=== PATIENT | female | born 1945 | race Caucasian/White ===

== ENCOUNTER → 2018-11-11 | Outpatient (CLI) | payer BC ==
[2015-08-12 05:15] VITALS: BP 151/74
[~2018-11-11] MED LIST: ALBU2.5V8 IH; CIPR250T30 PO; DOCU100C28 PO; ESTR1TAB15 PO; FEXO180T16 PO; FLUT1DIS3 IH; GLIM4TAB2 PO; INSU100I13 SQ; INSU100V SQ; LEVO500T8 PO; LORA-254 PO; LOSA25TA PO; METF10007 PO; OMEP20CA9 PO; PRED1TAB PO; PRED20TA PO; QUIN324C PO; SITA50TA PO
--- NOTE | 2018-11-11 15:18 | RAD ---
Examination: CT abdomen pelvis without contrast HISTORY: History of hematuria, right flank pain COMPARISON: 05/16/2015 TECHNIQUE: Axial CT images of the abdomen pelvis were performed without contrast. Coronal and sagittal reformats are performed Exposure: One or more of the following individualized dose reduction techniques were utilized for this examination: 1. Automated exposure control 2. Adjustment of the mA and/or kV according to patient size 3. Use of iterative reconstruction technique FINDINGS: The bibasilar lungs are clear. No evidence of free air identified in the abdomen. The evaluation of the solid organs is limited due to lack of IV contrast. The evaluation of bowel is limited due to lack of oral contrast. Diffuse decreased attenuation noted in the liver likely hepatic steatosis. A small subcentimeter hypodensities identified in the liver could be tiny cysts or cystic lesions difficult to characterize. The liver appears somewhat slightly nodular. The spleen demonstrates a few calcified granulomas. The visualized adrenals grossly appears unremarkable. Cholecystectomy changes are identified. The stomach is mildly distended. The visualized pancreas grossly appears unremarkable. The small bowel is nondilated. Feces and gas noted in the colon. Few sigmoid colon diverticulosis identified. The urinary bladder is mildly distended. Minimal fat stranding identified about the bilateral kidneys. No evidence of hydronephrosis. No obvious intrarenal collecting system calculi identified. The urinary bladder is mildly distended. Moderate aortic atherosclerosis. Moderate degenerative changes lumbar spine. IMPRESSION: 1. Mild bilateral perinephric fat stranding, nonspecific, underlying urinary tract infection is not excluded. Correlate clinically. 2. Hepatic steatosis with possible underlying cirrhosis of the liver. Tiny hypodensities identified in the liver could be cysts or cystic lesions. Recommend follow-up nonemergent MRI for further evaluation 3. Sigmoid colon diverticulosis. Electronically signed by: Bradley Meeks MD (11/11/2018 3:16 PM) [id number]
== END | disposition home or self-care (01) ==
LOC: CT 14:39
PROVIDERS: ATTEND Physician Assistant
DX: K76.0 Fatty (change of) liver, not elsewhere classified (principal); K57.30 Diverticulosis of large intestine without perforation or abscess without bleeding; K76.89 Other specified diseases of liver; D73.89 Other diseases of spleen; N32.89 Other specified disorders of bladder; I70.0 Atherosclerosis of aorta; Z90.49 Acquired absence of other specified parts of digestive tract; Z87.891 Personal history of nicotine dependence
CPT/HCPCS: 74150

== ENCOUNTER → 2020-12-15 | Outpatient (CLI) | payer BC ==
[2015-08-12 05:15] VITALS: BP 151/74
[~2020-12-15] MED LIST changes: -GLIM4TAB2 PO; +GLIM4TAB8 PO; +OMEP20CA16 PO; -OMEP20CA9 PO
--- NOTE | 2020-12-15 08:19 | RAD ---
INDICATION: Reason: CYSTITIS, UTI'S / Spl. Instructions: / History: COMPARISON: CT from October 21, 2012 TECHNIQUE: Grayscale and color ultrasound images obtained of the bilateral kidneys and bladder. FINDINGS: Right Kidney: 103 mm. No hydronephrosis. Left Kidney: 106 mm. No hydronephrosis. Bladder: Prevoid volume of 31 cc. The partially visualized liver is echogenic which is nonspecific but can be seen with fatty infiltrat ion. IMPRESSION: * No hydronephrosis bilaterally. Electronically signed by: Lavon Gomez MD (12/15/2020 8:17 AM) [id number]
== END ==
LOC: US 07:32
PROVIDERS: ATTEND Family Medicine
DX: N30.90 Cystitis, unspecified without hematuria (principal)
CPT/HCPCS: 76770